=== PATIENT | female | born 1985 | race Caucasian/White ===

== ENCOUNTER 2025-03-13 20:08 | Observation (INO) | payer SELFPAY ==
--- NOTE | 2025-03-13 20:06 | ECG_ITS ---
APPROVED REPORT Exam: Resting ECG HR:118 bpm ECG Measurements Heart Rate 118 AXES NV 125 P 86 QRSd 96 QRS 61 QT 294 T 79 QTc 364 Conclusion Sinus tachycardia Normal axis Normal intervals No STEMI Electronically signed by : Ramiro Turner, 03/14/2025 01:46:26
[2025-03-13 20:19] VITALS: BP 137/92; PULSE 105; RESP 22; TEMP 37.2; O2SAT 100; BMI 24.2
[2025-03-13 20:23] LABS: Hematocrit 44.2 % (37.0-47.0); Hemoglobin 15.0 g/dL (12.2-16.2); Immature Granulocytes % 0.3 %; Mean Corpuscular HGB Conc 33.9 g/dL (31.8-35.4); Mean Corpuscular Hemoglobin 29.1 pg (27.0-31.2); Mean Corpuscular Volume 85.8 fl (81-99); Nucleated Red Blood Cells % 0 %; Platelet Count 282 K/mm3 (142-424); Red Blood Count 5.15 M/mm3 (4.20-5.40); Red Cell Distribution Width-SD 39.1 fL; White Blood Count 9.0 K/mm3 (4.8-10.8)
[2025-03-13 20:30] VITALS: BP 128/82; PULSE 108; RESP 10; O2SAT 99
[2025-03-13 20:31] LABS: Alanine Aminotransferase 25 U/L (12-78); Albumin Level 4.8 g/dl (3.5-5.0); Albumin/Globulin Ratio 1.8 (1.1-1.8); Alkaline Phosphatase 66 U/L (38-126); Anion Gap 11.7 mEq/L (5-15); Aspartate Amino Transferase 28 U/L (14-36); Bilirubin,Total 0.6 mg/dl (0.2-1.3); Blood Urea Nitrogen 6 mg/dl (7-17); Calcium 9.6 mg/dl (8.4-10.2); Carbon Dioxide 23 mmol/L (22.0-30.0); Chloride 101 mmol/L (98-107); Creatinine Clearance Estimated 82 mL/min (50-200); Creatinine,Serum 0.80 mg/dl (0.52-1.04); Estimated Glomerular Filt Rate 79 ml/min (>60); GFR (African American) 96 ML/MIN (>60); Globulin 2.7 g/dL (1.3-3.2); Glucose 103 mg/dl (74-100); Potassium 3.7 mmoL/L (3.5-5.1); Sodium 132 mmol/L (136-145); Total Protein,Serum 7.5 g/dl (6.3-8.2)
[2025-03-13 20:33] LABS: Activated Partial Thrombo Time 27.3 seconds (22.8-30.6); INR 1.05 (0.9-1.1); Prothrombin Time 11.6 seconds (10.1-12.5)
[2025-03-13] MEDS: 0.9 % SODIUM CHLORIDE 1000ML 1,000 ML 999 ML IV (20:34)
[2025-03-13] MEDS: MORPHINE 4MG/ML SYRINGE 4 MG IV (20:34)
[2025-03-13] MEDS: ONDANSETRON 4MG/2ML VIAL 4 MG IV (20:34)
[2025-03-13 20:41] LABS: D-Dimer 0.89 ug/mL (0.0-0.5)
[2025-03-13 20:48] LABS: Troponin I < 0.01 ng/ml (0.00-0.034)
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
[2025-03-13 20:55] LABS: HCG Qualitative, Serum Positive (Negative)
[2025-03-13 21:24] LABS: Total Cells Counted 100
[2025-03-13 21:25] LABS: RBC Morphology Normal
--- NOTE | 2025-03-13 22:34 | CT_ITS ---
PROCEDURE INFORMATION: Exam: CTA Chest Without And With Contrast Exam date and time: 03/13/2025 10:44 PM Age: 39 years old Clinical indication: Pain; Dyspnea and shortness of breath; Chest pressure; Additional info: Chest pain, dyspnea, tachycardia. TECHNIQUE: Imaging protocol: Computed tomographic angiography of the chest without and with contrast. Exam focused on the arteries. 3D rendering (Not supervised by radiologist): MIP and/or 3D reconstructed images were created by the technologist. Radiation optimization: All CT scans at this facility use at least one of these dose optimization techniques: automated exposure control; mA and/or kV adjustment per patient size (includes targeted exams where dose is matched to clinical indication); or iterative reconstruction. Contrast material: ISOVUE; Contrast volume: 75 ml; Contrast route: INTRAVENOUS (IV); COMPARISON: CT ANGIO CHEST PE PROTOCOL 03/13/2025 10:44 PM FINDINGS: Pulmonary arteries: Normal. No pulmonary emboli. Aorta: Unremarkable. No aortic aneurysm. No aortic dissection. Lungs: A 5 mm nodule adjacent to the right major fissure in the right lower lobe on axial image 61. Lung estrella otherwise clear. Pleural spaces: No pleural effusion. Heart: Unremarkable. No cardiomegaly. No pericardial effusion. Esophagus: Mild diffuse wall thickening of the esophagus suggesting esophagitis. Lymph nodes: Unremarkable. No enlarged lymph nodes. Diaphragm: Small hiatal hernia. Kidneys: A 4 cm right renal cyst noted. No follow-up advised. Bones/joints: Unremarkable. No acute fracture. Soft tissues: Unremarkable. IMPRESSION: 1. No evident PE. No other acute findings. 2. Mild diffuse wall thickening of the esophagus suggesting esophagitis. 3. A 5 mm ovoid nodule adjacent to the right major fissure in the right lower lobe. Recommend follow-up CT Chest in 6-12 months. (References: Richy and Pam) COMMENTS: Consistent with the [employer]'s Incidental Findings Committee white paper (J Am Norma Radiol 2018): Any incidental renal lesion less than 1 cm or classified as too small to characterize, or any incidental cystic renal lesion characterized as simple-appearing, is likely benign. No follow-up imaging is recommended for these lesions per consensus recommendations based on imaging criteria. REFERENCES: 1. Richy Shine, et al. Guidelines for Management of Incidental Pulmonary Nodules Detected on CT Images: From the Fleischner Society 2017. Radiology. 2017;284(1):228-243. 2. Pam J, et al. Updated Fleischner Society Guidelines for Managing Incidental Pulmonary Nodules: Common Questions and Challenging Scenarios. Radiographics. 2018;38(5):7928-4014.
--- NOTE | 2025-03-13 22:35 | CT_ITS ---
PROCEDURE INFORMATION: Exam: CT Abdomen And Pelvis With Contrast Exam date and time: 03/13/2025 10:44 PM Age: 39 years old Clinical indication: Abdominal tenderness and nausea and vomiting; Additional info: Epigastric pain TECHNIQUE: Imaging protocol: Computed tomography of the abdomen and pelvis with contrast. 3D rendering (Not supervised by radiologist): MIP and/or 3D reconstructed images were created by the technologist. Radiation optimization: All CT scans at this facility use at least one of these dose optimization techniques: automated exposure control; mA and/or kV adjustment per patient size (includes targeted exams where dose is matched to clinical indication); or iterative reconstruction. Contrast material: ISOVUE; Contrast volume: 75 ml; Contrast route: IV; COMPARISON: CT ABDOMEN PELVIS W CON 03/13/2025 10:44 PM FINDINGS: Tubes, catheters and devices: Bilateral Essure tubes. Lungs: Lung bases are clear. Liver: Normal. No mass. Gallbladder and biliary ducts: Status post cholecystectomy. No evident bile duct dilatation allowing for prior cholecystectomy. Pancreas: Normal. No ductal dilation. Spleen: Normal. No splenomegaly. Adrenal glands: A 3 cm fat density right adrenal nodule compatible with myelolipoma noted. Kidneys and ureters: 4.5 cm right renal cyst. No follow-up advised. Kidneys and ureters otherwise unremarkable with no obstructing stones or uropathy. Stomach and bowel: Fluid distended small bowel loops noted in the left upper quadrant extending into the left lower quadrant measuring up to 3 cm in maximum dimension with transition to nondilated and nondistended more distal small bowel loops. GI tract structures otherwise unremarkable with no evident wall thickening allowing for incomplete distention. Appendix: Appendectomy. Intraperitoneal space: Unremarkable. No free air. No significant fluid collection. Vasculature: Unremarkable. No abdominal aortic aneurysm. Lymph nodes: Unremarkable. No enlarged lymph nodes. Urinary bladder: Unremarkable as visualized. Reproductive: 18 mm cyst in the left ovary compatible with physiologic cyst. No follow-up advised. Bones/joints: Unremarkable. No acute fracture. Soft tissues: Unremarkable. IMPRESSION: 1. Fluid distended small bowel loops noted in the left upper quadrant extending into the left lower quadrant measuring up to 3 cm in maximum dimension with transition to nondilated and nondistended more distal small bowel loops. Findings may reflect a segmental ileus potentially related to enteritis. The possibility of a developing mid small bowel obstruction can not be entirely excluded. Advise clinical assessment and follow-up. 2. A 3 cm fat density right adrenal nodule compatible with myelolipoma noted. COMMENTS: Consistent with the [employer]'s Incidental Findings Committee white paper (J Am Norma Radiol 2018): Any incidental renal lesion less than 1 cm or classified as too small to characterize, or any incidental cystic renal lesion characterized as simple-appearing, is likely benign. No follow-up imaging is recommended for these lesions per consensus recommendations based on imaging criteria.
--- NOTE | 2025-03-13 22:35 | XR_ITS ---
PROCEDURE INFORMATION: Exam: XR Chest Exam date and time: 03/13/2025 10:56 PM Age: 39 years old Clinical indication: Pain; Dyspnea and shortness of breath; Chest pressure; Additional info: Chest pain, dyspnea TECHNIQUE: Imaging protocol: Radiologic exam of the chest. Views: 1 view. COMPARISON: CT ANGIO CHEST PE PROTOCOL 03/13/2025 10:44 PM FINDINGS: Lungs: Unremarkable. No consolidation. Pleural spaces: Unremarkable. No pleural effusion. No pneumothorax. Heart/Mediastinum: Unremarkable. No cardiomegaly. Bones/joints: Unremarkable. IMPRESSION: No acute findings.
--- NOTE | 2025-03-13 22:45 | PC.NURSE ---
pt going to scan via stretcher
--- NOTE | 2025-03-13 22:49 | HMH.ITSTN ---
Spoke with patient about HCG level and asked for her consent to continue with imaging, per pt signature I was given the okay.
[2025-03-13] MEDS: SODIUM CHLORIDE 0.9% 10ML SYR (RAD ONLY) 10 ML IV (22:54)
[2025-03-13] MEDS: IOPAMIDOL-370 (76%);100ML BOTTLE 75 ML IV (22:54)
[2025-03-13] MEDS: 0.9 % SODIUM CHLORIDE 50 ML VIAL IV (22:54)
--- NOTE | 2025-03-13 22:58 | PC.NURSE ---
pt back to room. replaced monitoring. call light within reach
[2025-03-13] MEDS: FAMOTIDINE 20MG/2ML VIAL 20 MG IV (23:33)
[2025-03-13] MEDS: BELLADONNA ALKALOIDS 60 ML ML PO (23:33)
[2025-03-13] MEDS: IPRATROPIUM/ALBUTEROL 3 ML NEB 9 ML IH (23:39)
[2025-03-13 23:42] LABS: Bilirubin,Urine Negative (Negative); Color,Urine YELLOW (Yellow); Glucose,Urine (UA) Negative (Negative); Ketones,Urine Negative (Negative); Leukocyte Esterase,Urine Negative (Negative); PH,Urine 7.0 (5.0-8.5); Protein,Urine Negative (Negative); Specific Gravity, Urine <= 1.005 (1.005-1.030); Urobilinogen,Urine 0.2 EU/dl (0.2)
[2025-03-13 23:43] LABS: Microscopic, Urine URINE MICROSCOPIC (MICROSCOPIC)
[2025-03-13 23:56] LABS: Barbiturates Screen,Urine Negative ng/ml (<200); Benzodiazepines Screen,Urine Negative ng/ml (<200)
[2025-03-13 23:58] LABS: Methadone Screen,Urine Negative ng/ml (<300)
[2025-03-13 23:59] LABS: Opiate Screen,Urine Positive ng/ml (<300); Phencyclidine Screen,Urine Negative ng/ml (<25); WBC,Urine Occasional #/hpf (0-3)
[2025-03-14] VITALS (12 sets, daily range): BP systolic 102–146; BP diastolic 59–80; PULSE 65–138; RESP 12–18; TEMP 36.9–38.8; O2SAT 91–100; BMI 24.4
[2025-03-14] LABS: Bacteria,Urine Trace /lpf; RBC,Urine 20-50 #/hpf (0-3); Squamous Epithelial Cell,Urine Occasional #/hpf (0-5)
[2025-03-14] MEDS: ONDANSETRON 4MG/2ML VIAL 4 MG IV (00:24)
[2025-03-14] MEDS: 0.9 % SODIUM CHLORIDE 1000ML 1,000 ML 999 ML IV (00:24)
[2025-03-14 00:54] LABS: Troponin I < 0.01 ng/ml (0.00-0.034)
--- NOTE | 2025-03-14 01:07 | ECG_ITS ---
APPROVED REPORT Exam: Resting ECG HR:136 bpm ECG Measurements Heart Rate 136 AXES AR 108 P 78 QRSd 104 QRS 48 QT 355 T 77 QTc 435 Conclusion Sinus tachycardia Normal intervals Normal axis No STEMI Electronically signed by : Ramiro Turner, 03/14/2025 01:46:47
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
--- NOTE | 2025-03-14 01:34 | PC.NURSE ---
Report called to TANIA Darnell
--- NOTE | 2025-03-14 01:40 | PC.NURSE ---
Patient arrived to floor via stretcher from ED at 01:38.
[2025-03-14] MEDS: LACTATED RINGERS 1000ML 1,000 ML 150 ML IV ×2 (02:06→09:20)
[2025-03-14 02:14] LABS: Coronavirus 19, PCR Not Detected (NotDetected); Influenza B, PCR Not Detected (NotDetected)
[2025-03-14 03:02] LABS: Troponin I < 0.01 ng/ml (0.00-0.034)
[2025-03-14 03:30] LABS: Influenza A, PCR Detected (NotDetected)
--- NOTE | 2025-03-14 03:45 | P.EN_ITS ---
<Statement entered by Crow Segura MD - 03/16/25 11:06> Agree with plan of care as outlined by the MOLDER SWEEP. I obtained mini respiratory panel. Patient was positive for flu A. Will start 75 mg twice daily x 5 days. More than likely tachycardia and symptomology.
[2025-03-14 08:09] LABS: Hematocrit 40.4 % (37.0-47.0); Hemoglobin 13.6 g/dL (12.2-16.2); Immature Granulocytes % 0.2 %; Mean Corpuscular HGB Conc 33.7 g/dL (31.8-35.4); Mean Corpuscular Hemoglobin 29.4 pg (27.0-31.2); Mean Corpuscular Volume 87.3 fl (81-99); Nucleated Red Blood Cells % 0 %; Platelet Count 222 K/mm3 (142-424); Red Blood Count 4.63 M/mm3 (4.20-5.40); Red Cell Distribution Width-SD 40.3 fL; White Blood Count 6.1 K/mm3 (4.8-10.8)
[2025-03-14] MEDS: OSELTAMIVIR 75MG CAPSULE 75 MG PO ×2 (08:28→20:11)
[2025-03-14 08:50] LABS: Anion Gap 7.4 mEq/L (5-15); Blood Urea Nitrogen 5 mg/dl (7-17); Calcium 8.5 mg/dl (8.4-10.2); Carbon Dioxide 22 mmol/L (22.0-30.0); Chloride 105 mmol/L (98-107); Creatinine Clearance Estimated 82 mL/min (50-200); Creatinine,Serum 0.80 mg/dl (0.52-1.04); Estimated Glomerular Filt Rate 79 ml/min (>60); GFR (African American) 96 ML/MIN (>60); Glucose 101 mg/dl (74-100); Potassium 3.4 mmoL/L (3.5-5.1); Sodium 131 mmol/L (136-145)
[2025-03-14 09:21] LABS: Thyroid Stimulating Hormone 0.15 uIU/mL (0.465-4.68)
[2025-03-14] MEDS: ACETAMINOPHEN 325MG TAB 650 MG PO (09:21)
[2025-03-14 09:34] LABS: RBC Morphology Normal; Total Cells Counted 100
[2025-03-14 10:22] LABS: Free T4 (Free Thyroxine) 1.06 ng/dl (0.78-2.19)
[2025-03-14] MEDS: LEVALBUTEROL 1.25MG/3ML NEB 1.25 MG IH ×3 (11:28→22:58)
[2025-03-14] MEDS: IPRATROPIUM BROMIDE 0.5 MG/2.5ML SOLUTION IH ×3 (11:28→22:58)
[2025-03-14] MEDS: LACTATED RINGERS 1000ML 1,000 ML 100 ML IV (20:10)
[2025-03-14] MEDS: PANTOPRAZOLE 40MG TABLET 40 MG PO (20:11)
[2025-03-14] MEDS: SENNOSIDES 8.6MG/DOCUSATE 50MG TABLET 1 TAB PO (22:19)
[2025-03-15] VITALS (7 sets, daily range): BP systolic 114–134; BP diastolic 64–71; PULSE 85–120; RESP 16; TEMP 37.1–37.4; O2SAT 94–100; BMI 27.4
--- NOTE | 2025-03-15 04:23 | PC.NURSE ---
Alert and oriented. No complaints from patient. Rested throughout night. Room air. Sinus tach on tele. Independent in the room. Call light in reach.
[2025-03-15] MEDS: IPRATROPIUM BROMIDE 0.5 MG/2.5ML SOLUTION IH (06:33)
[2025-03-15] MEDS: LEVALBUTEROL 1.25MG/3ML NEB 1.25 MG IH (06:33)
[2025-03-15] MEDS: LACTATED RINGERS 1000ML 1,000 ML 100 ML IV (06:38)
[2025-03-15 07:15] LABS: Hematocrit 41.0 % (37.0-47.0); Hemoglobin 13.6 g/dL (12.2-16.2); Immature Granulocytes % 0 %; Mean Corpuscular HGB Conc 33.2 g/dL (31.8-35.4); Mean Corpuscular Hemoglobin 29.1 pg (27.0-31.2); Mean Corpuscular Volume 87.6 fl (81-99); Nucleated Red Blood Cells % 0 %; Platelet Count 194 K/mm3 (142-424); Red Blood Count 4.68 M/mm3 (4.20-5.40); Red Cell Distribution Width-SD 41.1 fL; White Blood Count 4.0 K/mm3 (4.8-10.8)
[2025-03-15 07:29] LABS: Anion Gap 7.6 mEq/L (5-15); Blood Urea Nitrogen 5 mg/dl (7-17); Calcium 8.6 mg/dl (8.4-10.2); Carbon Dioxide 25 mmol/L (22.0-30.0); Chloride 103 mmol/L (98-107); Creatinine Clearance Estimated 106 mL/min (50-200); Creatinine,Serum 0.70 mg/dl (0.52-1.04); Estimated Glomerular Filt Rate 92 ml/min (>60); GFR (African American) 112 ML/MIN (>60); Glucose 97 mg/dl (74-100); Potassium 3.6 mmoL/L (3.5-5.1); Sodium 132 mmol/L (136-145)
[2025-03-15] MEDS: OSELTAMIVIR 75MG CAPSULE 75 MG PO (08:50)
--- NOTE | 2025-03-15 09:28 | EXP.DC.SUM ---
General Admission date:: 03/14/25 HPI HPI HPI: This is a 39-year-old female with a past medical history significant for fibromyalgia and asthma who presents with a chief complaint of chest pain, shortness of breath, and difficulty breathing. Due to patient's symptoms, she presented to the emergency room for evaluation. While in the emergency room, EKG was consistent with a sinus tachycardia, QTc of 435, normal axis, and negative for STEMI fluid distended small bowel loop noted in the left upper quadrant extending into the left lower quadrant measuring up to 3 cm in maximum dimension with transition to the nondilated and nondistended more distal small bowel loop considerations include ileus enteritis and small bowel obstruction, a 3 cm fat density right adrenal nodule compatible with myelolipoma. CTA of the chest revealed mild diffuse wall thickening of the esophagus suggesting esophagitis a 5 mm ovoid nodule adjacent to the right major fissure in the right lower lobe. Patient had persistent sinus tachycardia and was positive for (ER provider performed bedside ultrasound that was nonrevealing patient states she had her last menstrual cycle approximately 2 months ago). Due to persistent tachycardia, patient is being admitted for further management. During my evaluation of the patient, patient states her symptomology started approximately 2 hours prior to presenting to the emergency room. She reports her symptoms have improved. On further questioning, patient states she has a history of asthma and has used her rescue inhaler yesterday evening more than 10 times. She reports her symptoms are worse with coughing. She reports having a nonproductive cough. She reports her triggers include exhaust, cold, and dust. On average, patient states that she normally only uses her rescue inhaler less than 1 times a week. She voices not using it often. Additionally, she states she has no prior cardiac history to include. Patient reports being asymptomatic and does not notice that her heart rate is elevated. She is currently denying any chest pain, lightheadedness, dizziness, PND, orthopnea, nausea, vomiting, shortness of breath, dyspnea, or diarrhea. Additional pertinent vitals obtained include a sodium 132, glucose of 103, serum hCG was positive, quantitative hCG was 6, neutrophils of 88.5%, and D-dimer of 0.89. Patient also reports that her fianc? has been sick with a viral illness. Patient is a current everyday smoker has been smoking since the age of 12. She reports that she is cutting down and smokes less than 10 cigarettes a day. Hospital Course Hospital Course Hospital Course: Luba Rhoades is a 39-year-old female who presented with generalized weakness, chest pain, shortness of breath and was admitted for persistent sinus tachycardia. #Acute viral syndrome #Influenza A #Reactive airway disease ? Presented with generalized weakness, shortness of breath and tested positive for influenza A. ? On my initial evaluation, patient had significant generalized weakness with some shortness of breath. ? Overall, clinically improved with DuoNebs, Tamiflu, IV fluid resuscitation. ? Sinus tachycardia also improving, currently 116 in the setting of viral infection. The patient feels much better. No longer having shortness of breath. ? Patient notes she is to have shortness of breath this child, and is a current tobacco smoker. Will start for chronic intermittent dyspnea Advair. ? Discharged with Tamiflu for 4 more days, and Advair 250 twice daily. ? Follow-up with pulmonology for PFTs. Exam Data for Last 24 hours Vital signs and Labs for Last 24 Hours: Temp Pulse Resp BP Pulse Ox O2 Del Method 99 F 116 H 16 114/64 100 Nasal Cannula 03/15/25 07:50 03/15/25 08:00 03/15/25 07:50 03/15/25 07:50 03/15/25 07:50 03/15/25 07:57 Laboratory Results - last 24 hr 03/14/25 07:45: Total Counted 100, Neutrophils % (Manual) 85 H, Lymphocytes % (Manual) 10, Monocytes % (Manual) 5, Platelet Estimate Normal, RBC Morphology Normal, TSH 0.15 L, Free T4 1.06, HCG, Quant 4 03/15/25 06:55: WBC 4.0 L D, RBC 4.68, Hgb 13.6, Hct 41.0, MCV 87.6, MCH 29.1, MCHC 33.2, RDW 12.8, Plt Count 194, MPV 10.0, Neut % (Auto) 58.0, Lymph % (Auto) 28.5, [place] % (Auto) 13.0 H, Eos % (Auto) 0.0 L, Baso % (Auto) 0.5, Neut # (Auto) 2.3, Lymph # (Auto) 1.1, [place] # (Auto) 0.5, Eos # (Auto) 0.0, Baso # (Auto) 0.0, Sodium 132 L, Potassium 3.6, Chloride 103, Carbon Dioxide 25, Anion Gap 7.6, BUN 5 L, Creatinine 0.70, Estimated Creat Clear 106, Estimated GFR 92, Est GFR ( Amer) 112, Glucose 97, Calcium 8.6 I & O for Last 24 hours: Intake & Output 03/12/25 03/13/25 03/14/25 03/15/25 23:59 23:59 23:59 23:59 Intake Total 1000 / 1000 3000 / 3180 1780 / 1780 Output Total 400 / 400 0 / 0 Balance 1000 / 1000 2600 / 2780 1780 / 1780 Weight 56.245 kg 56.387 kg 63.503 kg Constitutional Constitutional: no acute distress *Routine HEENT Exam Head: Present normocephalic Eye: Present EOMI and PERRL ENT: Present mucous membranes moist *Routine Neck Exam Neck: Present supple; Absent lymphadenopathy *Routine Respiratory Exam Respiratory: Present CTA bilaterally *Routine Cardiovascular Exam Cardiovascular: Present RRR *Routine Abdominal Exam Abdominal: Present soft and normoactive bowel sounds; Absent tenderness *Routine Extremities Exam Extremities: Absent cyanosis, clubbing or edema *Routine Skin Exam Skin: Present warm; Absent rash *Routine Neurological Exam Neurological: Present alert and oriented X3 Results Data Completed and Pending Labs on day of discharge: Labs from last 24 hours 03/15/25 03/14/25 06:55 07:45 WBC 4.0 L D RBC 4.68 Hgb 13.6 Hct 41.0 MCV 87.6 MCH 29.1 MCHC 33.2 RDW 12.8 Plt Count 194 MPV 10.0 Neut % (Auto) 58.0 Lymph % (Auto) 28.5 [place] % (Auto) 13.0 H Eos % (Auto) 0.0 L Baso % (Auto) 0.5 Neut # (Auto) 2.3 Lymph # (Auto) 1.1 [place] # (Auto) 0.5 Eos # (Auto) 0.0 Baso # (Auto) 0.0 Total Counted 100 Neutrophils % (Manual) 85 H Lymphocytes % (Manual) 10 Monocytes % (Manual) 5 Platelet Estimate Normal RBC Morphology Normal Sodium 132 L Potassium 3.6 Chloride 103 Carbon Dioxide 25 Anion Gap 7.6 BUN 5 L Creatinine 0.70 Estimated Creat Clear 106 Estimated GFR 92 Est GFR ( Amer) 112 Glucose 97 Calcium 8.6 TSH 0.15 L Free T4 1.06 HCG, Quant 4 DS: Diagnosis Discharge Diagnosis (1) Chest pain: Status: Acute Code(s): R07.9 - Chest pain, unspecified Qualifiers: Chest pain type: unspecified Qualified Code(s): R07.9 - Chest pain, unspecified (2) Tachycardia: Status: Acute Code(s): R00.0 - Tachycardia, unspecified (3) Asthma exacerbation: Status: Acute Code(s): J45.901 - Unspecified asthma with (acute) exacerbation Qualifiers: Asthma persistence: intermittent Asthma severity: mild Qualified Code(s): J45.21 - Mild intermittent asthma with (acute) exacerbation (4) Esophagitis: Status: Acute Code(s): K20.90 - Esophagitis, unspecified without bleeding (5) Elevated d-dimer: Status: Acute Code(s): R79.89 - Other specified abnormal findings of blood chemistry Meds Home Medications and Allergies Home Medications ?Medication ?Instructions ?Recorded ?Confirmed ?Type fluticasone 250 mcg-salmeterol 50 1 inh inhalation BIDRT 30 days #0 03/15/25 Rx mcg/dose blistr powdr for ea inhalation oseltamivir 75 mg capsule (Tamiflu) 75 mg PO BID #7 caps 03/15/25 Rx New Prescriptions to Start Prescriptions: oseltamivir [Tamiflu] Crow Segura Allergies Allergy/AdvReac Type Severity Reaction Status Date / Time No Known Allergies Allergy Verified 03/13/25 20:27 Discharge Plan Disposition Patient Disposition: Home, Self-Care Condition: Fair Follow up Plan Follow up with: ProviderTariq MD [Primary Care Provider, Medical] - 2 weeks Referral Note: please call pcp for appointment Lance Romo MD [Physician, Pulmonology] - 2 weeks Prescriptions/Medication Reconciliation: New fluticasone propion-salmeterol 250-50 mcg/dose Blister With Device 1 inh inhalation BIDRT 30 Days Qty: 0 0RF oseltamivir [Tamiflu] 75 mg Capsule 75 mg PO BID Qty: 7 0RF Problem Reconciliation Problems Reviewed?: Yes Patient Discharge Instructions Patient Instructions: Influenza, DI for Chest Pain Print Language: [place] Providers Primary Care Provider: Provider,Referral Admit Provider: Crow Segura Attending Provider: Crow Segura
--- NOTE | 2025-03-16 11:12 | SW/DCPLANNER ---
Spoke with patients on the phone. Patient's stated that she is doing good. Patient's stated that they are going to call and schedule her follow up appointments. Patient's stated that they have no concerns or questions at this time. Alejandra HOUGH [employer] Operator
[2025-03-18 19:15] LABS: Amphetamine (GC/MS) 1338 ng/mL (Cutoff=500); Methamphetamine (GC/MS) 2552 ng/mL (Cutoff=500)
== END 2025-03-15 10:52 | disposition home or self-care (01) ==
LOC: ER 03-14 01:07 → 2ND 03-14 01:14
PROVIDERS: Nurse Practitioner; Nurse Practitioner Family; Admitting Provider Student in an Organized Health Care Education/Training Program; Emergency Provider Student in an Organized Health Care Education/Training Program; Visit Provider Student in an Organized Health Care Education/Training Program
DX: J45.21 Mild intermittent asthma with (acute) exacerbation (principal); R00.0 Tachycardia, unspecified; K20.90 Esophagitis, unspecified without bleeding; R79.89 Other specified abnormal findings of blood chemistry; Z79.51 Long term (current) use of inhaled steroids; M79.7 Fibromyalgia; B34.9 Viral infection, unspecified; J10.1 Influenza due to other identified influenza virus with other respiratory manifestations; M25.559 Pain in unspecified hip; M54.9 Dorsalgia, unspecified; G89.29 Other chronic pain; Z98.890 Other specified postprocedural states; Z90.49 Acquired absence of other specified parts of digestive tract; Z98.51 Tubal ligation status; F17.200 Nicotine dependence, unspecified, uncomplicated; Z56.0 Unemployment, unspecified; R91.1 Solitary pulmonary nodule; E27.9 Disorder of adrenal gland, unspecified; R10.13 Epigastric pain
CPT/HCPCS: 36415; 71045; 71275; 74177; 80048; 80053; 80307; 80324; 81001; 84439; 84443; 84484; 84702; 84703; 85007; 85025; 85027; 85378; 85610; 85730; 87631; 93005; 94640; 96361; 96372; 96374; 96375; 96376; 99285; G0378; J1308; J1650; J2270; J2405; J7030; J7120; J7614; Q9967